=== PATIENT | male | born 1950 | race Caucasian/White ===

== ENCOUNTER 2017-12-17 14:41 | Inpatient (IN) | payer MEDICARE, MEDICAID ==
[~2017-12-17] VITALS: Ht 162.6 cm; Wt 68.5 kg
[~2017-12-17 14:41] MED LIST: AMLO10TA80 PO; ASPI-864 PO; CLOP75TA33 PO; COR12 PO; FOLI0.8T23 PO; GLYB5TAB7 PO; LOSA100T14 PO; MULT-1146 PO; NEPVIT PO; OMEG1CAP17 PO; PRAV40TA58 PO; ZET10 PO
[2017-12-17] MEDS ORDERED: ASPIRIN 81MG TABLET PO ONE (15:15)
[2017-12-17 15:48] LABS: BASOPHILS % 1.1 % (0.0-2.0); EOSINOPHILS % 2.4 % (0.0-5.0); HEMATOCRIT. 27.6 % (42.0-52.0); HEMOGLOBIN. 9.4 g/dL (14.0-18.0); LYMPHOCYTES % 11.3 % (20.0-50.0); MEAN CORPUSCULAR HEMOGLOBIN 31.5 pg (28.0-32.0); MEAN PLATELET VOLUME 6.8 fl (7.4-10.4); MONOCYTES % 9.3 % (2.0-8.0); NEUTROPHILS % 75.9 % (40.0-76.0); PLATELET 285 x1000/uL (130-400); RED CELL DISTRIBUTION WIDTH 14.8 % (11.6-14.6)
[2017-12-17 15:49] LABS: INR 1.2; PROTHROMBIN TIME 12.4 sec (9.4-11.6)
[2017-12-17 16:01] LABS: CHLORIDE 98 mEq/L (98-107)
[2017-12-17 17:35] LABS: TOTAL IRON BINDING CAPACITY 210 ug/dL (250-450)
[2017-12-17 18:47] VITALS: BP 156/88
[2017-12-17 20:00] VITALS: BP 124/51
[2017-12-17] MEDS: CARVEDILOL 12.5MG TABLET PO SCH (21:00)
[2017-12-17] MEDS: AMLODIPINE 5MG TABLET PO SCH (21:00)
[2017-12-17] MEDS ORDERED: ENOXAPARIN 30MG/0.3ML SYR SUBCUT ONE (21:00)
[2017-12-17] MEDS: SEVELAMER CARBONATE 800 MG TABLET PO SCH (21:45)
[2017-12-17 22:00] VITALS: BP 92/42
[2017-12-17] MEDS ORDERED: DEXTROSE 50% WATER 50ML SYRINGE IV PRN (22:30)
[2017-12-17] MEDS: TEMAZEPAM 15MG CAPSULE PO PRN (23:16)
[2017-12-18] VITALS (10 sets, daily range): BP systolic 86–124; BP diastolic 47–66
[2017-12-18] MEDS: PANTOPRAZOLE 40MG DR TABLET PO SCH (06:04)
[2017-12-18] MEDS: BLOOD SUGAR DIAGNOSTIC STRIP TEST SCH ×4 (06:07→20:59)
[2017-12-18] MEDS: INSULIN LISPRO 100 UNITS/ML SUBCUT SCH ×4 (06:59→20:59)
[2017-12-18 07:18] LABS: BASOPHILS % 0.7 % (0.0-2.0); EOSINOPHILS % 4.1 % (0.0-5.0); HEMATOCRIT. 29.3 % (42.0-52.0); HEMOGLOBIN. 9.5 g/dL (14.0-18.0); LYMPHOCYTES % 13.4 % (20.0-50.0); MEAN CORPUSCULAR HEMOGLOBIN 30.9 pg (28.0-32.0); MEAN CORPUSCULAR VOLUME 94.9 fL (80.0-94.0); MEAN PLATELET VOLUME 7.8 fl (7.4-10.4); MONOCYTES % 9.6 % (2.0-8.0); NEUTROPHILS % 72.2 % (40.0-76.0); PLATELET 209 x1000/uL (130-400); RED BLOOD CELL COUNT 3.08 mill/uL (4.7-6.1); RED CELL DISTRIBUTION WIDTH 14.9 % (11.6-14.6)
[2017-12-18] MEDS: SEVELAMER CARBONATE 800 MG TABLET PO SCH ×4 (07:20→17:50)
[2017-12-18 08:04] LABS: CHLORIDE 100 mEq/L (98-107); CREATINE KINASE 56 IU/L (39-308); HDL CHOLESTEROL 28 mg/dL (40-59); LDL CHOLESTEROL 50 mg/dL (5-100); PHOSPHORUS 4.2 mg/dL (2.5-4.9)
[2017-12-18] MEDS ORDERED: IODIXANOL 320MG/ML 100 ML BOTTLE IV ONE ×2 (08:24→09:50)
[2017-12-18] MEDS: CARVEDILOL 12.5MG TABLET PO SCH ×2 (08:25→21:02)
[2017-12-18] MEDS: FOLIC ACID/VITAMIN B COMP W-C TABLET PO SCH (08:25)
[2017-12-18] MEDS ORDERED: LIDOCAINE HCL/PF 1% 10 MG/ML 5ML VIAL ONE (08:25)
[2017-12-18] MEDS: LOSARTAN POTASSIUM 25 MG TABLET PO SCH (08:25)
[2017-12-18] MEDS ORDERED: ASPIRIN/SOD BICARB/CITRIC ACID 324MG TAB EFF ONE (08:46)
[2017-12-18] MEDS ORDERED: HEPARIN SODIUM 1,000 UNIT/1ML VIAL IV ONE ×2 (08:52→13:30)
[2017-12-18] MEDS ORDERED: MIDAZOLAM HCL 2 MG/2 ML VIAL ONE (08:54)
[2017-12-18] MEDS ORDERED: FENTANYL CITRATE/PF 50MCG/ML 2ML VIAL ONE (08:54)
[2017-12-18] MEDS: AMLODIPINE 5MG TABLET PO SCH ×2 (09:00→20:00)
[2017-12-18] MEDS ORDERED: ASPIRIN 81MG EC TABLET PO SCH (09:00)
[2017-12-18] MEDS ORDERED: IOVERSOL 240MG/ML 100ML BOTTLE IV ONE (09:53)
[2017-12-18] MEDS ORDERED: CLOPIDOGREL 75MG TABLET ONE (10:45)
[2017-12-18] MEDS ORDERED: ATROPINE SULFATE 1MG/10ML SYR IV PRN (11:00)
[2017-12-18] MEDS ORDERED: ONDANSETRON HCL 4MG/2ML VIAL IV PRN (11:00)
[2017-12-18] MEDS ORDERED: CLOPIDOGREL 75MG TABLET PO ONE (11:00)
[2017-12-18] MEDS ORDERED: ACETAMINOPHEN 325MG TABLET PO PRN (11:00)
[2017-12-18] MEDS ORDERED: MORPHINE SULFATE 4 MG/ML CPJ (NOT FOR IM USE) IV PRN (11:00)
[2017-12-18] MEDS ORDERED: NITROGLYCERIN 50MCG/ML 10ML VIAL (CATH LAB) IV ONE (14:30)
[2017-12-18] MEDS ORDERED: NICARDIPINE 100MCG/ML 10ML VIAL (CATH LAB) IV ONE (14:30)
[2017-12-18 14:41] LABS: HEPATITIS B SURFACE ANTIGEN NEGATIVE
[2017-12-18 15:09] LABS: HEPATITIS B CORE AB IGM NEGATIVE
[2017-12-18 15:11] LABS: HEPATITIS A AB IGM NEGATIVE (NEGATIVE)
[2017-12-18] MEDS ORDERED: EPOETIN ALFA 4000UNITS/ML VIAL SUBCUT SCH (21:00)
[2017-12-18] MEDS: TEMAZEPAM 15MG CAPSULE PO PRN (21:02)
[2017-12-19] VITALS: BP 116/57
[2017-12-19 04:07] VITALS: BP 105/44
[2017-12-19] MEDS: PANTOPRAZOLE 40MG DR TABLET PO SCH (05:21)
[2017-12-19] MEDS: BLOOD SUGAR DIAGNOSTIC STRIP TEST SCH (05:23)
[2017-12-19] MEDS: INSULIN LISPRO 100 UNITS/ML SUBCUT SCH (05:33)
[2017-12-19 06:39] LABS: BASOPHILS % 0.5 % (0.0-2.0); EOSINOPHILS % 3.4 % (0.0-5.0); HEMATOCRIT. 35.6 % (42.0-52.0); HEMOGLOBIN. 11.2 g/dL (14.0-18.0); LYMPHOCYTES % 11.2 % (20.0-50.0); MEAN CORPUSCULAR HEMOGLOBIN 30.3 pg (28.0-32.0); MEAN CORPUSCULAR VOLUME 96.3 fL (80.0-94.0); MONOCYTES % 9.2 % (2.0-8.0); NEUTROPHILS % 75.7 % (40.0-76.0); RED BLOOD CELL COUNT 3.69 mill/uL (4.7-6.1); RED CELL DISTRIBUTION WIDTH 15.3 % (11.6-14.6)
[2017-12-19] MEDS: FOLIC ACID/VITAMIN B COMP W-C TABLET PO SCH (07:50)
[2017-12-19] MEDS: SEVELAMER CARBONATE 800 MG TABLET PO SCH (07:50)
[2017-12-19] MEDS: CARVEDILOL 12.5MG TABLET PO SCH (07:51)
[2017-12-19] MEDS: AMLODIPINE 5MG TABLET PO SCH (07:51)
[2017-12-19] MEDS: LOSARTAN POTASSIUM 25 MG TABLET PO SCH (07:52)
[2017-12-19 08:00] VITALS: BP 119/59
[2017-12-19] MEDS ORDERED: ASPIRIN 325MG TABLET PO SCH (09:00)
[2017-12-19] MEDS ORDERED: CLOPIDOGREL 75MG TABLET PO SCH (09:00)
[2017-12-19 09:58] VITALS: BP 119/53
[2017-12-19 11:03] LABS: MEAN PLATELET VOLUME 7.6 fl (7.4-10.4)
[2017-12-19 11:04] LABS: PLATELET 257 x1000/uL (130-400)
== END 2017-12-19 09:30 | disposition home or self-care (01) | DRG 246 ==
LOC: ER 15:55 → 3WST 17:27 → EDBEDREQTM 17:29 → EDBEDREQ 17:29 → ENRESERV 17:57
PROVIDERS: ADMIT Internal Medicine; ATTEND Internal Medicine
PROC: 4A023N7 Measurement of Cardiac Sampling and Pressure, Left Heart, Percutaneous Approach (ICD-10-PCS; principal; 2017-12-18)
PROC: 027034Z Dilation of Coronary Artery, One Artery with Drug-eluting Intraluminal Device, Percutaneous Approach (ICD-10-PCS; 2017-12-18)
PROC: 02703ZZ Dilation of Coronary Artery, One Artery, Percutaneous Approach (ICD-10-PCS; 2017-12-18)
PROC: B2111ZZ Fluoroscopy of Multiple Coronary Arteries using Low Osmolar Contrast (ICD-10-PCS; 2017-12-18)
PROC: 5A1D70Z Performance of Urinary Filtration, Intermittent, Less than 6 Hours Per Day (ICD-10-PCS; 2017-12-18)
PROC: B2181ZZ Fluoroscopy of Left Internal Mammary Bypass Graft using Low Osmolar Contrast (ICD-10-PCS; 2017-12-18)
DX: I21.4 Non-ST elevation (NSTEMI) myocardial infarction (principal); N18.6 End stage renal disease; E46 Unspecified protein-calorie malnutrition; E11.22 Type 2 diabetes mellitus with diabetic chronic kidney disease; E83.39 Other disorders of phosphorus metabolism; I13.11 Hypertensive heart and chronic kidney disease without heart failure, with stage 5 chronic kidney disease, or end stage renal disease; R79.89 Other specified abnormal findings of blood chemistry; I25.110 Atherosclerotic heart disease of native coronary artery with unstable angina pectoris; R74.0 Nonspecific elevation of levels of transaminase and lactic acid dehydrogenase [LDH]; E78.00 Pure hypercholesterolemia, unspecified; E78.5 Hyperlipidemia, unspecified; D64.9 Anemia, unspecified; I35.1 Nonrheumatic aortic (valve) insufficiency; Z79.02 Long term (current) use of antithrombotics/antiplatelets; Z79.4 Long term (current) use of insulin; Z82.49 Family history of ischemic heart disease and other diseases of the circulatory system; I25.2 Old myocardial infarction; Z95.1 Presence of aortocoronary bypass graft; Z95.3 Presence of xenogenic heart valve; Z99.2 Dependence on renal dialysis; Z91.19 Patient's noncompliance with other medical treatment and regimen; Z79.899 Other long term (current) drug therapy; Z79.82 Long term (current) use of aspirin; Z68.25 Body mass index [BMI] 25.0-25.9, adult
CPT/HCPCS: 36415; 71045; 76700; 80048; 80053; 80061; 80076; 82550; 82553; 82962; 83540; 83550; 83735; 83880; 84100; 84443; 84484; 85025; 85347; 85379; 85610; 86705; 86709; 86803; 87340; 92920; 92937; 93005; 93455; 99285; C1725; C1760; C1769; C1887; C1893; J0885; J1644; J1650; J2250; J3010; J3490; J7030; Q9967